=== PATIENT | female | born 1985 | race Hispanic/Latino ===

== ENCOUNTER 2024-03-06 01:40 | Emergency (ER) | payer SELFPAY | END 2024-03-06 03:46 | disposition home or self-care (01) | LOC: CSHERS 01:40 | DX: O26.891 Other specified pregnancy related conditions, first trimester (principal); R10.2 Pelvic and perineal pain; Z3A.01 Less than 8 weeks gestation of pregnancy | CPT/HCPCS: 76856 ==

== ENCOUNTER 2024-07-22 12:35 | Day surgery (SDC) | payer MEDICAID, OTHER ==
[2024-07-22 13:03] VITALS: BMI 34.2
== END 2024-07-22 13:48 | disposition home or self-care (01) ==
LOC: CSHLD/OP 12:35
PROVIDERS: ATTEND Family Medicine
DX: O36.8120 Decreased fetal movements, second trimester, not applicable or unspecified (principal); O30.042 Twin pregnancy, dichorionic/diamniotic, second trimester; O09.521 Supervision of elderly multigravida, first trimester; Z88.0 Allergy status to penicillin; Z3A.26 26 weeks gestation of pregnancy; Z79.82 Long term (current) use of aspirin; Z79.899 Other long term (current) drug therapy
CPT/HCPCS: 99281

== ENCOUNTER 2024-10-04 13:31 | Outpatient (CLI) | payer MEDICAID, OTHER ==
[2024-10-04 15:04] LABS: Hematocrit 37.6 % (34.9-44.5); Hemoglobin 12.8 g/dL (12.0-15.5); Platelet Count 220 10x3/uL (150-450)
[2024-10-04 15:38] LABS: Syphilis Antibody Nonreactive (Nonreactive); Syphilis Antibody Index 0.06 S/CO (<1.00 Non-Reactive)
[2024-10-04 15:39] LABS: HBsAg Index 0.35 S/CO (0-0.99); Hep B Surf Ag Non-Reactive S/CO (NonReactive)
== END 2024-10-04 13:32 | disposition home or self-care (01) ==
LOC: CSHLAB 13:31
PROVIDERS: ATTEND Family Medicine
DX: Z01.812 Encounter for preprocedural laboratory examination (principal); O34.219 Maternal care for unspecified type scar from previous cesarean delivery; O30.009 Twin pregnancy, unspecified number of placenta and unspecified number of amniotic sacs, unspecified trimester
CPT/HCPCS: 85014; 85018; 85049; 86780; 86850; 86900; 86901; 87340

== ENCOUNTER 2024-10-05 14:38 | Inpatient (IN) | payer MEDICAID, OTHER, SELFPAY ==
[2024-10-05] MEDS ORDERED: Tranexamic Acid 1,000 MG/10 ML VIAL IVP PRN (15:26)
[2024-10-05] MEDS ORDERED: Misoprostol 200 MCG TAB PR PRN (15:26)
[2024-10-05] MEDS ORDERED: Oxytocin 30 units/NS 500 ML 500 ML IV SCH (15:26)
[2024-10-05] MEDS ORDERED: Methylergonovine 0.2 MG/ML VIAL IM PRN (15:26)
[2024-10-05] MEDS ORDERED: Carboprost 250 MCG/ML AMP IM PRN (15:26)
[2024-10-05] MEDS ORDERED: Diphenoxylate HCl/Atropine Tablet PO PRN (15:26)
[2024-10-05] MEDS ORDERED: Bicitra 30 ML UDCUP PO PRN (15:26)
[2024-10-05] MEDS ORDERED: Ondansetron PF 4 MG/2 ML Vial IVP PRN ×4 (15:26→22:08)
[2024-10-05] MEDS ORDERED: hydrALAZINE 20 MG/ML VIAL SLOW IVP PRN ×2 (15:26→22:08)
[2024-10-05] MEDS ORDERED: Promethazine HCl 25 MG/ML VIAL IM PRN ×3 (15:26→22:08)
[2024-10-05 15:50] VITALS: BMI 37.3
[2024-10-05] MEDS ORDERED: Moisturizing Cream (Eucerin) 113 GM JAR TOP PRN (16:07)
[2024-10-05] MEDS ORDERED: Meperidine HCl/PF 25 MG (1 mL) VIAL SLOW IVP PRN (16:07)
[2024-10-05] MEDS ORDERED: Naloxone HCl 0.4 mg/ml Vial IVP PRN ×2 (16:07)
[2024-10-05] MEDS ORDERED: Morphine 4 MG/ML VIAL SLOW IVP PRN (16:07)
[2024-10-05] MEDS ORDERED: Naloxone HCl 0.4 mg/ml Vial IV PRN (16:07)
[2024-10-05] MEDS ORDERED: fentaNYL 50 mcg/mL 1 mL Vial SLOW IVP PRN (16:07)
[2024-10-05] MEDS ORDERED: Ketorolac Tromethamine 30 MG (1 mL) VIAL IVP SCH (16:15)
[2024-10-05] MEDS ORDERED: Communication Order-Pharmacy FS SCH ×2 (16:15→22:30)
[2024-10-05] MEDS: Famotidine/PF 20 mg/2ml Vial SLOW IVP PRN (16:57)
[2024-10-05] MEDS: CEFAZOLIN 2 GM VIAL ONE (16:57)
[2024-10-05] MEDS ORDERED: Simethicone Chewable 80 MG TAB PO PRN (22:08)
[2024-10-05] MEDS ORDERED: Lanolin Ointment 7 GM TUBE TOP PRN (22:08)
[2024-10-05] MEDS ORDERED: Bisacodyl 10 MG SUPP PR PRN (22:08)
[2024-10-05] MEDS ORDERED: diphenhydrAMINE 25 MG CAP PO PRN (22:08)
[2024-10-05] MEDS: diphenhydrAMINE 50 MG/ML VIAL IVP PRN (22:21)
[2024-10-05] MEDS: Ketorolac Tromethamine 30 MG (1 mL) VIAL IVP PRN (22:22)
[2024-10-06] MEDS ORDERED: Meperidine HCl/PF 25 MG (1 mL) VIAL IM PRN (04:15)
[2024-10-06 06:14] LABS: Hematocrit 29.7 % (34.9-44.5); Mean Corpuscular HGB CONC 33.7 g/dL (32.0-36.0); Mean Corpuscular Hemoglobin 31.4 pg (27.0-33.0); Mean Corpuscular Volume 93.4 fL (81.6-98.3); Mean Platelet Volume 9.7 fL (7.4-10.4); Platelet Count 185 10x3/uL (150-450); RBC Distribution Width 12.1 % (11.5-14.5); Red Blood Cell (RBC) Count 3.18 10x6/uL (3.90-5.03); White Blood Cell (WBC) Count 10.16 10x3/uL (3.5-10.5)
[2024-10-06] MEDS: Ketorolac Tromethamine 30 MG (1 mL) VIAL IVP SCH (06:53)
[2024-10-06] MEDS: Prenatal Vitamin 1 TAB PO SCH (08:43)
[2024-10-06] MEDS: Docusate 100 MG CAP PO SCH (08:43)
[2024-10-06] MEDS: HYDROcodone/Acetaminophen 5/325 mg Tablet PO PRN (08:43)
[2024-10-06] MEDS: Ferrous Sulfate 325 MG TAB PO SCH (08:46)
[2024-10-06] MEDS: Ibuprofen 800 MG TAB PO SCH (21:57)
[2024-10-07] MEDS: Dexamethasone 10 MG/ML VIAL ONE (07:24)
[2024-10-07] MEDS: Lactated Ringer's 1,000 ML IV SCH (07:24)
[2024-10-07] MEDS: Dexmedetomidine 200 MCG/2 ML VIAL ONE (07:25)
[2024-10-07] MEDS: ePHEDrine Sulfate 50 MG/10 ML VIAL ONE ×2 (07:25→07:27)
[2024-10-07] MEDS: Phenylephrine 40 MG/NS 250 ML 250 ML ONE (07:25)
[2024-10-07] MEDS: Oxytocin 10 UNITS/ML VIAL ONE (07:25)
[2024-10-07] MEDS: Ondansetron PF 4 MG/2 ML Vial ONE (07:25)
[2024-10-07] MEDS: Lidocaine 1% PF 5 ML VIAL ONE (07:25)
[2024-10-07] MEDS: PHENYLEPHRINE-NS 100 MCG/ML 10 ML SYRINGE ONE ×2 (07:25→07:27)
[2024-10-07] MEDS: Hepatitis B Vaccine 10 MCG/0.5 ML SYR ONE (07:26)
[2024-10-07] MEDS: Bupivacaine 0.75% W/DEXTROSE 8.25% 2 ML AMP ONE (07:26)
[2024-10-07] MEDS: Erythromycin Base 0.5% Oint 1 GM TUBE ONE (07:26)
[2024-10-07] MEDS: Morphine PF 10 MG/10 ML VIAL ONE (07:26)
[2024-10-07] MEDS: Phytonadione Neonatal 1 MG/0.5 ML AMP ONE (07:26)
[2024-10-07] MEDS: Boostrix 0.5 ML (Tdap) VIAL (>/=7 yrs of age) IM ONE (07:27)
[2024-10-07] MEDS: Docusate 100 MG CAP PO SCH (07:27)
[2024-10-07] MEDS: Ferrous Sulfate 325 MG TAB PO SCH (07:27)
[2024-10-07] MEDS: HYDROcodone/Acetaminophen 5/325 mg Tablet PO PRN (22:07)
[2024-10-08 11:44] VITALS: BP 112/69; TEMP 97.9
== END 2024-10-08 19:20 | disposition home or self-care (01) | DRG 788 ==
LOC: CSHLD 14:38 → CSHPED 21:35
PROVIDERS: ADMIT Family Medicine; ATTEND Family Medicine
PROC: 10D00Z1 Extraction of Products of Conception, Low, Open Approach (ICD-10-PCS; principal; 2024-10-05)
DX: O30.043 Twin pregnancy, dichorionic/diamniotic, third trimester (principal); Z3A.37 37 weeks gestation of pregnancy; Z37.2 Twins, both liveborn; O99.214 Obesity complicating childbirth; M19.90 Unspecified osteoarthritis, unspecified site; O99.892 Other specified diseases and conditions complicating childbirth
CPT/HCPCS: 36415; 51702; 85027; 88307; C1889; J1100; J1200; J1885; J2274; J2405; J2590; J3490